=== PATIENT | male | born 1950 | race African-American/Black ===

== ENCOUNTER 2019-04-21 12:01 | Emergency (ER) | payer MEDICARE ==
[~2019-04-21] VITALS: Ht 167.6 cm; Wt 74.0 kg
[2019-04-21 18:08] VITALS: BP 107/58
== END 2019-04-21 23:03 | disposition left against medical advice (07) ==
LOC: ER 12:01
DX: Z53.21 Procedure and treatment not carried out due to patient leaving prior to being seen by health care provider (principal)

== ENCOUNTER 2022-03-25 01:38 | Emergency (ER) | payer MEDICARE, OTHER ==
[~2022-03-25] VITALS: Ht 175.3 cm; Wt 85.0 kg
[2022-03-25] MEDS ORDERED: BACL-141 MT (01:59)
[2022-03-25] MEDS ORDERED: ACET-2708 MT (01:59)
[2022-03-25] MEDS ORDERED: IBUP-2029 MT (01:59)
[2022-03-25] MEDS ORDERED: LIDO700A15 TP (01:59)
[2022-03-25] MEDS ORDERED: IBUPROFEN 600MG TABLET PO ONE (02:00)
[2022-03-25] MEDS ORDERED: HYDROCODONE/ACETAMINOPHEN 5/325MG TABLET PO ONE (02:00)
[2022-03-25] MEDS: LIDOCAINE 5% PATCH TOP SCH ×2 (03:15→09:00)
[2022-03-25] MEDS ORDERED: ACETAMINOPHEN 325MG TABLET PO ONE (10:45)
[2022-03-25] MEDS ORDERED: KETOROLAC 30MG/ML VIAL IM ONE (10:45)
[2022-03-25 13:00] VITALS: BP 132/70
== END 2022-03-25 14:19 | disposition home or self-care (01) ==
LOC: ER 01:38
DX: G89.29 Other chronic pain (principal); M54.50 Low back pain, unspecified; I10 Essential (primary) hypertension; F20.9 Schizophrenia, unspecified; Z98.1 Arthrodesis status; N40.0 Benign prostatic hyperplasia without lower urinary tract symptoms
CPT/HCPCS: 96372; 99285; J1885